=== PATIENT | male | born 1995 | race Caucasian/White ===

== ENCOUNTER 2022-10-19 18:31 | Emergency (ER) | payer SELFPAY ==
[~2022-10-19] VITALS: Ht 167.6 cm; Wt 91.0 kg
[2022-10-19 18:48] VITALS: BP 134/67
[2022-10-19 21:27] LABS: BASOPHILS % 0.7 % (0.0-2.0); EOSINOPHILS % 2.5 % (0.0-5.0); HEMATOCRIT. 45.9 % (42.0-52.0); HEMOGLOBIN. 15.9 g/dL (14.0-18.0); LYMPHOCYTES % 22.8 % (20.0-50.0); MEAN CORPUSCULAR HEMOGLOBIN 30.5 pg (28.0-32.0); MEAN PLATELET VOLUME 7.7 fl (7.4-10.4); MONOCYTES % 8.2 % (2.0-8.0); NEUTROPHILS % 65.8 % (40.0-76.0); PLATELET 249 x1000/uL (130-400); RED BLOOD CELL COUNT 5.21 mill/uL (4.7-6.1); RED CELL DISTRIBUTION WIDTH 13.2 % (11.6-14.6)
[2022-10-19 21:31] LABS: CHLORIDE 105 mEq/L (98-107)
[2022-10-19 21:41] LABS: ETHANOL BLOOD < 10 mg/dL
[2022-10-19] MEDS ORDERED: SULF1TAB48 MT (23:57)
[2022-10-20] MEDS ORDERED: CLINDAMYCIN HCL 150MG CAPSULE PO SCH
[2022-10-20] MEDS ORDERED: BO1 TP (00:04)
[2022-10-20 02:03] LABS: *AMPHETAMINES SCREEN URINE NEGATIVE (NEGATIVE); *BARBITURATES SCREEN URINE NEGATIVE (NEGATIVE); *BENZODIAZEPINES SCREEN URINE NEGATIVE (NEGATIVE); *COCAINE SCREEN URINE NEGATIVE (NEGATIVE); CANNABINOID URINE SCREEN PRESUMTIVE POSITIVE (NEGATIVE); METHADONE URINE SCREEN NEGATIVE (NEGATIVE); OPIATES URINE SCREEN NEGATIVE (NEGATIVE); PHENCYCLIDINE URINE SCREEN NEGATIVE (NEGATIVE)
[2022-10-20] MEDS ORDERED: BACITRACIN 15GM TUBE TOP SCH (09:00)
== END 2022-10-20 00:31 | disposition home or self-care (01) ==
LOC: ER 18:31
DX: L03.031 Cellulitis of right toe (principal); L03.311 Cellulitis of abdominal wall
CPT/HCPCS: 36415; 73630; 80053; 80305; 80320; 85025; 99284; G0480